=== PATIENT | male | born 1940 | race Caucasian/White ===

== ENCOUNTER → 2017-10-14 | Outpatient (CLI) | payer OTHER ==
[~2017-10-14] MED LIST: DARVOCET N 1001 TAB PO; DAYPRO600 M1 PO
== END | disposition home or self-care (01) ==
LOC: CT 16:30
DX: R07.9 Chest pain, unspecified (principal); R06.02 Shortness of breath; R05 Cough

== ENCOUNTER 2018-06-28 11:14 | Emergency (ER) | payer OTHER ==
[~2018-06-28] VITALS: Ht 175.2 cm; Wt 77.1 kg
--- NOTE | ~2018-06-28 | EKG ---
[place], [place] ELECTROCARDIOGRAM REPORT NAME: GEMMA HAY UNIT #: [id number] ROOM: DOCTOR: EPIPHKELVIN DRAFT REPORT BIRTHDATE: [birth year] [facility] Test Date: 2018-06-28 Test Time: 11:42:26 Pat Name: GEMMA HAY Department: Room: Gender: Community Worker: KIM : 1940 Requested By: ERIC JEAN-BAPTISTE Order Number: [id number] Reading MD: Maikol Chun MD Measurements Intervals [place] Rate: 60 P: 82 [place]: 145 QRS: 77 QRSD: 96 T: 191 QT: 613 QTc: 613 Interpretive Statements Sinus rhythm Borderline repolarization abnormality Prolonged QT interval Baseline wander in lead(s) V3 Electronically Signed On 06-29-2018 4:16:52 PDT by Maikol Chun MD CM:EKGRPT:ELECTROCARDIOGRAM REPORT [id number] ERIC HERZOG DRAFT REPORT ERIC JEAN-BAPTISTE M.D.
[2018-06-28 11:54] LABS: BASO % 0.7 % (0.0-1.0); EOS # 0.1 10*3/uL (0.0-0.4); HEMATOCRIT 40.4 % (42.0-52.0); LYMPH # 1.9 10*3/uL (1.3-4.4); LYMPH % 31.5 % (27.0-41.0); MEAN CORPUSCULAR HGB 28.3 pg (27.0-31.0); MEAN CORPUSCULAR HGB CONC 32.2 g/dl (33.0-37.0); MEAN PLATELET VOLUME 10.2 fl (9.6-12.3); MONO # 0.6 10*3/uL (0.1-1.0); MONO % 9.6 % (3.0-9.0); NEUT # 3.4 10*3/uL (2.3-7.9); NEUT % 56.9 % (47.0-73.0); PLATELET COUNT AUTOMATED 195 10*3/uL (130-400); RED BLOOD COUNT 4.59 10*6/uL (4.50-5.90); RED CELL DISTRI WIDTH 13.9 % (0-14.5); WHITE BLOOD COUNT 5.9 10*3/uL (4.8-10.8)
[2018-06-28 12:03] LABS: ACT PARTIAL THROMBO TIME 22.7 SECONDS (20.8-31.5)
[2018-06-28 12:09] LABS: ALBUMIN 3.5 gm/dl (3.1-4.5); ALKALINE PHOSPHATASE 62 U/L (45-117); BUN 15 mg/dl (7-24); CHLORIDE 105 mmol/L (98-107); CREATININE 1.21 mg/dL (0.70-1.30); SGOT/AST 18 IU/L (3-35); SGPT/ALT 21 U/L (12-78); SODIUM 140 mmol/L (136-145); TOTAL PROTEIN 7.2 gm/dL (6.4-8.2)
== END 2018-06-28 16:45 | disposition left against medical advice (07) ==
LOC: ED 11:14
PROVIDERS: Emergency Medicine
DX: G45.9 Transient cerebral ischemic attack, unspecified (principal); Z98.890 Other specified postprocedural states